=== PATIENT | male | born 1940 | race Caucasian/White ===

== ENCOUNTER 2017-08-18 10:23 | Day surgery (SDC) | payer MEDICARE, OTHER ==
[~2017-08-18 10:23] MED LIST: LIDOCAINE HCL 1% MPF SOL ONE; PROPOFOL 500 MG/50 ML EMU IV ONE
[2017-08-18 12:21] VITALS: O2SAT 97
[2017-08-18 12:34] VITALS: BP 153/87; PULSE 73; RESP 18; TEMP 97.6
== END 2017-08-18 12:58 | disposition home or self-care (01) | DRG 951 ==
LOC: SURG 10:23
PROVIDERS: ATTEND Surgery
DX: Z12.11 Encounter for screening for malignant neoplasm of colon (principal); D50.0 Iron deficiency anemia secondary to blood loss (chronic); R13.10 Dysphagia, unspecified; D12.3 Benign neoplasm of transverse colon; Z86.010 Personal history of colon polyps; K57.30 Diverticulosis of large intestine without perforation or abscess without bleeding
CPT/HCPCS: J2001; J2704